=== PATIENT | male | born 1955 | race Caucasian/White ===

== ENCOUNTER → 2018-11-20 07:01 | Outpatient (CLI) | payer MEDICARE, SELFPAY ==
[2018-11-20 07:55] LABS: Alanine Aminotransferase 41 IU/L (21-72); Albumin 4.7 g/dL (3.5-5.0); Albumin Globulin Ratio 1.5 (1.0-2.8); Alkaline Phosphatase 60 U/L (38-126); Aspartate Aminotransferase 47 IU/L (17-59); BUN Creatinine Ratio 31.4 (6-22); Bilirubin Total 0.7 mg/dL (0.2-1.3); Blood Urea Nitrogen 22 mg/dL (9-20); Calcium 10.1 mg/dL (8.4-10.2); Carbon Dioxide 29 mmol/L (22-32); Chloride 98 mmol/L (98-107); Cholesterol 200 mg/dL (140-199); Estimated Glomerular Filt Rate > 60.0 mL/min (>60); Globulin 3.2 g/dL (1.7-4.1); Glucose 112 mg/dL (80-110); HDL Cholesterol 54 mg/dL (40-60); HEMOLYSIS < 15 (0-50); LDL Cholesterol Calculated 130 mg/dL (<100); Potassium 4.5 mmol/L (3.4-5.1); Sodium 138 mmol/L (137-145); Total Protein 7.9 g/dL (6.3-8.2); Triglycerides 80 mg/dL (35-150)
[2018-11-20 09:51] LABS: Thyroid Stimulating Hormone 3.68 uIU/mL (0.47-4.68)
[2018-11-20 09:54] LABS: Creatinine Urine Random 33.2 mg/dL
[2018-11-20 10:24] LABS: Microalbumin Urine Random < 0.6 mg/dL (0-1.6)
[2018-11-20 10:25] LABS: Hep C Virus Ab w/Reflex Quant NEGATIVE s/c (NEGATIVE)
[2018-11-20 15:33] LABS: Hemoglobin A1C% w Est Avg Glu 5.7 % (4.0-6.0)
== END ==
PROVIDERS: PCP Physician Assistant; Visit Provider Physician Assistant
DX: E03.9 Hypothyroidism, unspecified (principal); E78.2 Mixed hyperlipidemia; I10 Essential (primary) hypertension; R73.01 Impaired fasting glucose; Z11.59 Encounter for screening for other viral diseases
CPT/HCPCS: 36415; 80053; 80061; 82043; 82570; 83036; 84443; 86803

== ENCOUNTER → 2019-03-19 08:55 | Outpatient (CLI) | payer MEDICARE, SELFPAY ==
--- NOTE | 2019-03-19 08:59 | DI.US.S_ITS ---
PROCEDURE: US ABD AORTA ANEURYSM SCREEN INDICATIONS: ABDOMINAL AORTIC ANEURYSM SCREENING TECHNIQUE: Real time scanning was performed of the aorta and iliac arteries, with image documentation. COMPARISON: None. FINDINGS: Aorta: Proximal aortic diameter measures 2.6 cm. Mid-aorta measures 2.5 cm. Distal aortic diameter is 2.0 cm. Iliac arteries: Right common iliac artery measures 1.7 cm. Left common iliac artery measures 1.8 cm. Multiple incidentally noted cysts are present within the liver, the largest of which measures 11.7 x 10.7 x 9.1 cm. IMPRESSION: 1. Abdominal aortic ectasia. 5 year sonographic surveillance recommended. 2. Multiple simple hepatic cysts. Dictated by: Bushra Moore M.D. on 03/19/2019 at 10:15 Approved by: Bushra Moore M.D. on 03/19/2019 at 10:17
== END ==
PROVIDERS: PCP Physician Assistant; Visit Provider Physician Assistant
DX: Z13.6 Encounter for screening for cardiovascular disorders (principal); I77.819 Aortic ectasia, unspecified site; K76.89 Other specified diseases of liver
CPT/HCPCS: 76706

== ENCOUNTER → 2019-04-04 08:03 | Outpatient (CLI) | payer MEDICARE, SELFPAY ==
--- NOTE | 2019-04-04 | DI.MRI.S_ITS ---
PROCEDURE: MR SHOULDER LT WO CON INDICATIONS: Impingement syndrome of left shoulder TECHNIQUE: Noncontrast oblique coronal T2 fast spin echo with fat saturation, oblique sagittal T1 spin echo and T2 fast spin echo with fat saturation, axial T1 spin echo and T2 fast spin echo with fat saturation through the shoulder. COMPARISON: None. FINDINGS: Image quality: Excellent. Rotator cuff: There is a full-thickness tear of the supraspinatus tendon. There is partial thickness of the infraspinatus and subscapularis tendons along the articular surface. The infraspinatus tendon is intact. Sagittal images demonstrate mild supraspinatus muscle atrophy. There is also teres minor muscle atrophy. Bones and bursae: No bone marrow contusions or fractures. There is severe acromioclavicular and glenohumeral joint degeneration. The acromion demonstrates conventional anatomy, without an os acromiale. There is subacromial-subdeltoid or subcoracoid bursal fluid, likely related to rotator cuff tendon tear or reactive bursitis. Capsule and soft tissues: There is degenerative fraying of the glenoid labrum. In the absence of intra-articular contrast, the glenohumeral ligaments appear intact. The long head of the biceps tendon demonstrates normal location and morphology. The rotator interval appears normal, without fibrosis. The coracohumeral ligament is normal in thickness. IMPRESSION: 1. Full-thickness tear of the supraspinatus tendon. No tendon retraction. There is mild supraspinatus muscle atrophy. 2. Partial-thickness tear of the infraspinatus and subscapularis tendons. 3. There is teres minor muscle atrophy, which is most likely related to rotator cuff tendon tear. A differential diagnosis is quadrilateral space syndrome or traction injury of the axillary nerve. 4. Severe acromioclavicular and glenohumeral joint degeneration. 5. Degenerative labral fraying. Dictated by: Velvet Guzman M.D. on 04/04/2019 at 9:40 Approved by: Velvet Guzman M.D. on 04/05/2019 at 10:10
== END ==
PROVIDERS: PCP Physician Assistant; Visit Provider Physician Assistant Surgical
DX: S46.012A Strain of muscle(s) and tendon(s) of the rotator cuff of left shoulder, initial encounter (principal); M75.42 Impingement syndrome of left shoulder; M12.812 Other specific arthropathies, not elsewhere classified, left shoulder
CPT/HCPCS: 73221

== ENCOUNTER → 2019-07-22 08:42 | Outpatient (CLI) | payer MEDICARE, SELFPAY ==
[2019-07-22 10:03] LABS: Creatinine Urine Random 30.8 mg/dL
[2019-07-22 10:11] LABS: Microalbumi Creatinin Ratio Ur 19.4 ug/mg CR (<30); Microalbumin Urine Random < 0.6 mg/dL (0-1.6)
[2019-07-22 10:15] LABS: Hemoglobin A1C% w Est Avg Glu 5.7 % (4.0-6.0)
[2019-07-22 10:30] LABS: Alanine Aminotransferase 24 IU/L (<50); Albumin 4.6 g/dL (3.5-5.0); Albumin Globulin Ratio 1.3 (1.0-2.8); Alkaline Phosphatase 88 U/L (38-126); Aspartate Aminotransferase 34 IU/L (17-59); BUN Creatinine Ratio 24.3 (6-22); Bilirubin Total 0.7 mg/dL (0.2-1.3); Blood Urea Nitrogen 17 mg/dL (9-20); Carbon Dioxide 33 mmol/L (22-32); Chloride 97 mmol/L (98-107); Cholesterol 229 mg/dL (140-199); Estimated Glomerular Filt Rate > 60.0 mL/min (>60); Globulin 3.5 g/dL (1.7-4.1); Glucose 99 mg/dL (80-110); HDL Cholesterol 58 mg/dL (40-60); HEMOLYSIS < 15 (0-50); LDL Cholesterol Calculated 144 mg/dL (<100); Potassium 3.7 mmol/L (3.4-5.1); Sodium 139 mmol/L (137-145); Total Protein 8.1 g/dL (6.3-8.2); Triglycerides 135 mg/dL (35-150)
== END ==
PROVIDERS: PCP Physician Assistant; Visit Provider Physician Assistant
DX: E78.2 Mixed hyperlipidemia (principal); I10 Essential (primary) hypertension; R73.01 Impaired fasting glucose; Z83.3 Family history of diabetes mellitus
CPT/HCPCS: 36415; 80053; 80061; 82043; 82570; 83036

== ENCOUNTER → 2020-08-25 14:31 | Outpatient (CLI) | payer MEDICARE, OTHER, SELFPAY ==
[2020-08-25 17:05] LABS: Prostate Specific Antigen Scrn 0.586 ng/mL (0.1-4.0)
== END ==
PROVIDERS: PCP Family Medicine; Referring Provider Family Medicine; Visit Provider Family Medicine
DX: Z12.5 Encounter for screening for malignant neoplasm of prostate (principal)
CPT/HCPCS: 36415; G0103

== ENCOUNTER → 2021-06-07 12:34 | Outpatient (CLI) | payer MEDICARE, OTHER, SELFPAY ==
[2021-06-07 13:16] LABS: Hemoglobin A1C% w Est Avg Glu 5.9 % (4.0-6.0)
[2021-06-07 13:23] LABS: Alanine Aminotransferase 30 IU/L (<50); Albumin 4.6 g/dL (3.5-5.0); Albumin Globulin Ratio 1.5 (1.0-2.8); Alkaline Phosphatase 97 U/L (38-126); Aspartate Aminotransferase 37 IU/L (17-59); BUN Creatinine Ratio 34.3 (6-22); Bilirubin Total 0.4 mg/dL (0.2-1.3); Blood Urea Nitrogen 23 mg/dL (9-20); Calcium 9.9 mg/dL (8.4-10.2); Carbon Dioxide 27 mmol/L (22-32); Chloride 100 mmol/L (98-107); Cholesterol 222 mg/dL (140-199); Estimated Glomerular Filt Rate > 60.0 mL/min (>60); Globulin 3.1 g/dL (1.7-4.1); Glucose 93 mg/dL (80-110); HDL Cholesterol 57 mg/dL (40-60); HEMOLYSIS 15 (0-50); LDL Cholesterol Calculated 129 mg/dL (<100); Potassium 3.9 mmol/L (3.4-5.1); Sodium 137 mmol/L (137-145); Total Protein 7.7 g/dL (6.3-8.2); Triglycerides 178 mg/dL (35-150)
[2021-06-07 13:40] LABS: Free T4, Direct Thyroxine 1.04 ng/dL (0.78-2.19)
[2021-06-07 13:53] LABS: Prostate Specific Antigen Scrn 0.561 ng/mL (0.1-4.0); Thyroid Stimulating Hormone 1.81 uIU/mL (0.47-4.68)
== END ==
PROVIDERS: PCP Family Medicine; Referring Provider Family Medicine; Visit Provider Family Medicine
DX: E03.9 Hypothyroidism, unspecified (principal); R73.01 Impaired fasting glucose; Z12.5 Encounter for screening for malignant neoplasm of prostate; E78.2 Mixed hyperlipidemia; E04.9 Nontoxic goiter, unspecified
CPT/HCPCS: 36415; 80053; 80061; 83036; 84439; 84443; G0103

== ENCOUNTER → 2021-10-26 15:43 | Outpatient (CLI) | payer MEDICARE, OTHER, SELFPAY ==
--- NOTE | 2021-10-26 | DI.CT.S_ITS ---
PROCEDURE: CT CHEST WO CON INDICATIONS: Solitary pulmonary nodule TECHNIQUE: Noncontrast 2.0-2.5 mm thick sections acquired from the pulmonary apices to the posterior costophrenic angles. 7 mm thick axial MIP, and 5 mm coronal and sagittal reformats were then acquired. A low radiation dose technique was utilized. COMPARISON: [facility], RG, CT LUNG CANCER SCREENING, 09/14/2020, 9:04. FINDINGS: Image quality: Diagnostic, given the low radiation dose technique. Lungs and pleura: No acute airspace disease. Minimal dependent atelectasis of the lung bases. Faint focal ground-glass opacity of the periphery of the left lower lobe likely representing atelectasis. No focal consolidation. No septal thickening or nodularity. No pneumothorax or pleural effusion. No suspicious pulmonary nodule seen. Mediastinum: Heart size is normal. Atherosclerotic calcifications of the coronary arteries are again noted. No pericardial effusion. No mediastinal adenopathy by size criteria. Thoracic aorta and central pulmonary arteries are normal in size. Esophagus is normal in caliber. No hiatal hernia. Bones and chest wall: No suspicious bony lesions. No acute vertebral body compression fractures. No axillary or supraclavicular adenopathy by size criteria. Thyroid gland is unremarkable. Redemonstration of healed rib fracture deformities of multiple left-sided ribs. Abdomen: Redemonstration of multiple hepatic hypodensities compatible with hepatic cysts. These are not significantly changed. Remainder of the visualized upper abdomen solid organs and bowel loops appear normal in the absence of contrast. IMPRESSION: No suspicious pulmonary nodules. No acute cardiopulmonary abnormality seen. Mild ground-glass opacities of the bilateral lung bases compatible with atelectasis. Atherosclerosis. LUNG-RADS 2; recommend follow-up screening low-dose chest CT in 1 year. Dictated by: Hudson Martinez M.D. on 10/26/2021 at 18:02 Approved by: Hudson Martinez M.D. on 10/26/2021 at 18:10
== END ==
PROVIDERS: PCP Family Medicine; Referring Provider Family Medicine; Visit Provider Family Medicine
DX: R91.1 Solitary pulmonary nodule (principal); I25.10 Atherosclerotic heart disease of native coronary artery without angina pectoris
CPT/HCPCS: 71250